=== PATIENT | male | born 1955 | race Caucasian/White ===

== ENCOUNTER 2018-02-20 06:35 | Day surgery (SDC) | payer BC ==
[2018-02-20] VITALS (20 sets, daily range): BP systolic 113–198; BP diastolic 71–102
[~2018-02-20] VITALS: Ht 175.3 cm; Wt 108.9 kg
[~2018-02-20 06:35] MED LIST: ENAL10TA78 PO; LIDOcaine 1% (10mg/ml) 2ml vial ONE; METF500T PO; famotidine 20mg tablet PO ONE; ringers solution, lacted 1,000 ML IV SCH
[2018-02-20] MEDS ORDERED: ceFAZolin 1000mg inj ONE (06:47)
[2018-02-20] MEDS ORDERED: BUPIVAcaine/PF 2.5 mg/ml (0.25%) 30ml vial ONE (06:48)
[2018-02-20 07:26] LABS: PRE OP PROTIME 10.1 SECONDS (9.0-12.0)
[2018-02-20 07:28] LABS: BASOPHILS % (AUTO) 0.1 % (0-1); EOSINOPHILS # (AUTO) 0.6 X10'3 (0-0.9); EOSINOPHILS % (AUTO) 7.8 % (0-6); LYMPHOCYTES # (AUTO) 2.3 X10'3 (1.1-4.8); LYMPHOCYTES % (AUTO) 30.3 % (21-51); MEAN CORPUSCULAR HEMOGLOBIN 30.3 PG (27.0-31.0); MEAN CORPUSCULAR HGB CONC 34.5 % (33.0-36.5); MEAN CORPUSCULAR VOLUME 87.8 FL (78-98); MEAN PLATELET VOLUME 7.2 FL (7.4-10.4); MONOCYTES # (AUTO) 0.5 X10'3 (0-0.9); MONOCYTES % (AUTO) 6.5 % (2-12); NEUTROPHILS # (AUTO) 4.2 X10'3 (1.8-7.7); NEUTROPHILS % (AUTO) 55.3 % (42-75); PRE OP HEMATOCRIT 50.4 % (42.0-52.0); PRE OP HEMOGLOBIN 17.4 g/dL (14.0-17.9); PRE OP PLATELET COUNT 234 X10'3 (140-440); RED BLOOD COUNT 5.74 X10'6 (4.70-6.10); RED CELL DISTRIBUTION WIDTH 12.6 % (11.5-14.5)
[2018-02-20 07:30] LABS: ALBUMIN 4.3 G/DL (3.4-5.0); ALBUMIN/GLOBULIN RATIO 1.3 (1.1-1.5); ALKALINE PHOSPHATASE 96 IU/L (46-116); BLOOD UREA NITROGEN 18 MG/DL (7-18); BUN/CREATININE RATIO 14.3 (5.4-32.0); CALCIUM 9.3 MG/DL (8.5-10.1); CHLORIDE 103 MMOL/L (99-107); CREATININE 1.26 MG/DL (0.60-1.10); PRE OP ALT 18 U/L (30-65); PRE OP ANION GAP 13 (8-16); PRE OP AST 14 U/L (10-37); PRE OP BILIRUB, TOTAL 0.9 MG/DL (0.0-1.0); PRE OP GLUCOSE 142 MG/DL (70-104); PRE OP POTASSIUM 4.4 MMOL/L (3.4-5.1); PRE OP SODIUM 139 MMOL/L (135-145); TOTAL CARBON DIOXIDE 23.1 MMOL/L (24-32); TOTAL PROTEIN 7.6 G/DL (6.4-8.2); eGFR 58 ML/MIN
[2018-02-20 07:33] LABS: HEMOGLOBIN A1C 6.5 % (4.5-6.2)
[2018-02-20] MEDS ORDERED: ceFAZolin inj. 2,000 MG in dextrose 5%-water 100 ML IV ONE (08:20)
[2018-02-20] MEDS ORDERED: midazolam 2 mg/2 ml injection ONE (08:28)
[2018-02-20] MEDS ORDERED: fentaNYL/PF 50MCG/1 ML 2ML syringe ONE ×2 (08:28→08:46)
[2018-02-20] MEDS ORDERED: desflurane 240ml liquid inh. IH ONE (08:28)
[2018-02-20] MEDS ORDERED: succinylcholine 20mg/ml inj IV ONE (08:45)
[2018-02-20] MEDS ORDERED: LIDOcaine 2% (20mg/ml) 5ml vial ONE (08:45)
[2018-02-20] MEDS ORDERED: propofol inj 20 ML IV ONE (08:45)
[2018-02-20] MEDS ORDERED: rocuronium 10mg/ml inj IV ONE (08:45)
[2018-02-20] MEDS ORDERED: labetalol 5mg/ml 20ml inj. IV ONE (09:18)
[2018-02-20] MEDS ORDERED: ringers solution, lacted 1,000 ML IV SCH (09:27)
[2018-02-20] MEDS ORDERED: meperidine/PF 50mg/ml syringe IV PRN ×2 (09:30)
[2018-02-20] MEDS ORDERED: ondansetron/PF 4mg/2ml inj IV PRN (09:30)
[2018-02-20] MEDS ORDERED: proCHLORperazine 10 MG/2 ml inj IV PRN (09:30)
[2018-02-20] MEDS ORDERED: morphine 4 MG/ML inj SYRINge IV PRN ×2 (09:30)
[2018-02-20] MEDS ORDERED: glycopyrrolate 0.2mg/ml inj ONE (09:36)
[2018-02-20] MEDS ORDERED: ondansetron/PF 4mg/2ml inj ONE (09:36)
[2018-02-20] MEDS ORDERED: neostigmine methylsulfate 1 MG/ML 10ml vial ONE (09:36)
[2018-02-20] MEDS ORDERED: meperidine/PF 50mg/ml syringe ONE (09:59)
[2018-02-20] MEDS ORDERED: labetalol 5mg/ml 20ml inj. IV PRN (10:35)
[2018-02-20] MEDS ORDERED: hydrALAZINE 20mg/ml inj. IV PRN (10:35)
[2018-02-20] MEDS ORDERED: insulin regular, human 10 units/0.1 ml syringe IV ONE (10:45)
[2018-02-20] MEDS: meperidine/PF 50mg/ml syringe IV PRN ×2 (10:45→11:42)
[2018-02-20] MEDS ORDERED: HYDROcodone/acetaminophen 10/325mg tab PO ONE (14:25)
== END 2018-02-20 17:19 | disposition home or self-care (01) ==
LOC: PAS 06:35 → EDSEX 09:15 → PAS 17:19
PROVIDERS: ATTEND Surgery
DX: K40.21 Bilateral inguinal hernia, without obstruction or gangrene, recurrent (principal); E11.9 Type 2 diabetes mellitus without complications; G47.33 Obstructive sleep apnea (adult) (pediatric); I10 Essential (primary) hypertension; E66.9 Obesity, unspecified; Z68.35 Body mass index [BMI] 35.0-35.9, adult; Z72.89 Other problems related to lifestyle; Z79.01 Long term (current) use of anticoagulants; Z90.49 Acquired absence of other specified parts of digestive tract; Z79.84 Long term (current) use of oral hypoglycemic drugs; Z79.899 Other long term (current) drug therapy; Z98.890 Other specified postprocedural states
CPT/HCPCS: 36415; 49651; 80053; 82948; 83036; 85025; 85610; 85730; 93005; A4315; A6258; C1713; C1781; J0330; J0360; J0690; J1815; J2001; J2175; J2250; J2270; J2405; J2704; J2710; J3010; J3490; J7120; J7060

== ENCOUNTER 2018-10-23 07:58 | Day surgery (SDC) | payer BC ==
[~2018-10-23] VITALS: Ht 175.3 cm; Wt 107.2 kg
[2018-10-23] VITALS (8 sets, daily range): BP systolic 149–218; BP diastolic 63–116
[~2018-10-23 07:58] MED LIST changes: -LIDOcaine 1% (10mg/ml) 2ml vial ONE; +cefazolin/dext.iso 2gm/50ml 50 ML IV ONE
[2018-10-23 09:22] LABS: BASOPHILS % (AUTO) 0.6 % (0-1); EOSINOPHILS # (AUTO) 0.5 X10'3 (0-0.9); EOSINOPHILS % (AUTO) 7.9 % (0-6); LYMPHOCYTES # (AUTO) 2.3 X10'3 (1.1-4.8); LYMPHOCYTES % (AUTO) 39.4 % (21-51); MEAN CORPUSCULAR HEMOGLOBIN 29.5 PG (27.0-31.0); MEAN CORPUSCULAR HGB CONC 33.7 % (33.0-36.5); MEAN CORPUSCULAR VOLUME 87.4 FL (78-98); MEAN PLATELET VOLUME 6.8 FL (7.4-10.4); MONOCYTES # (AUTO) 0.4 X10'3 (0-0.9); MONOCYTES % (AUTO) 7.2 % (2-12); NEUTROPHILS # (AUTO) 2.6 X10'3 (1.8-7.7); NEUTROPHILS % (AUTO) 44.9 % (42-75); PRE OP HEMATOCRIT 47.4 % (42.0-52.0); PRE OP PLATELET COUNT 244 X10'3 (140-440); RED BLOOD COUNT 5.42 X10'6 (4.70-6.10); RED CELL DISTRIBUTION WIDTH 12.7 % (11.5-14.5)
[2018-10-23 09:34] LABS: CLARITY,URINE CLEAR (Clear); COLOR,URINE YELLOW (Yellow); GLUCOSE, URINE NEGATIVE (Neg); KETONES,URINE NEGATIVE (Neg); LEUKOCYTE ESTERASE ,URINE NEGATIVE (Neg); NITRITES, URINE NEGATIVE (Neg); OCCULT BLOOD,URINE NEGATIVE (Neg); PROTEIN,URINE NEGATIVE (Neg); UROBILINOGEN,URINE 0.2 E.U/dL (0.2-1.0)
[2018-10-23 09:35] LABS: UA COLLECTION TYPE NON-SPECIFIED
[2018-10-23 09:42] LABS: ALBUMIN 3.8 G/DL (3.4-5.0); ALBUMIN/GLOBULIN RATIO 1.3 (1.1-1.5); ALKALINE PHOSPHATASE 90 IU/L (46-116); BLOOD UREA NITROGEN 17 MG/DL (7-18); CALCIUM 9.3 MG/DL (8.5-10.1); CHLORIDE 103 MMOL/L (99-107); PRE OP ALT 18 U/L (30-65); PRE OP ANION GAP 12 (8-16); PRE OP AST 15 U/L (10-37); PRE OP BILIRUB, TOTAL 0.9 MG/DL (0.0-1.0); PRE OP GLUCOSE 127 MG/DL (70-104); PRE OP POTASSIUM 4.1 MMOL/L (3.4-5.1); PRE OP SODIUM 138 MMOL/L (135-145); TOTAL CARBON DIOXIDE 22.8 MMOL/L (24-32); TOTAL PROTEIN 6.7 G/DL (6.4-8.2); eGFR 76 ML/MIN
[2018-10-23] MEDS ORDERED: BUPIVAcaine/PF 2.5mg/ml (0.25%) 10ml vial ONE (15:29)
[2018-10-23] MEDS ORDERED: sevoflurane 250ml liquid IH ONE (16:05)
[2018-10-23] MEDS ORDERED: fentaNYL /PF 50mcg/ml 5ml ampule ONE (16:06)
[2018-10-23] MEDS ORDERED: midazolam 2 mg/2 ml injection ONE (16:06)
[2018-10-23] MEDS ORDERED: rocuronium 10mg/ml inj IV ONE (16:55)
[2018-10-23] MEDS ORDERED: neostigmine methylsulfate 1 MG/ML 10ml vial ONE (16:55)
[2018-10-23] MEDS ORDERED: LIDOcaine 2% (20mg/ml) 5ml vial ONE (16:55)
[2018-10-23] MEDS ORDERED: ondansetron/PF 4mg/2ml inj ONE (16:55)
[2018-10-23] MEDS ORDERED: glycopyrrolate 0.2mg/ml inj ONE (16:55)
[2018-10-23] MEDS ORDERED: propofol inj 20 ML IV ONE (16:55)
[2018-10-23] MEDS ORDERED: ringers solution, lacted 1,000 ML IV SCH (17:07)
[2018-10-23] MEDS ORDERED: morphine 4 MG/ML inj SYRINge IV PRN ×2 (17:10)
[2018-10-23] MEDS ORDERED: proCHLORperazine 10 MG/2 ml inj IV PRN (17:10)
[2018-10-23] MEDS ORDERED: meperidine/PF 25mg/ml syringe IV PRN ×3 (17:10)
[2018-10-23] MEDS ORDERED: ondansetron/PF 4mg/2ml inj IV PRN (17:10)
[2018-10-23] MEDS ORDERED: labetalol 20mg/4ml (5mg/ml) syringe IV PRN (17:35)
[2018-10-23] MEDS ORDERED: labetalol 20mg/4ml (5mg/ml) syringe IV ONE (17:36)
[2018-10-23] MEDS ORDERED: hydrALAZINE 20mg/ml inj. IV ONE ×2 (17:55→17:57)
== END 2018-10-23 18:25 | disposition home or self-care (01) ==
LOC: PAS 07:58
PROVIDERS: ATTEND Surgery
DX: L76.32 Postprocedural hematoma of skin and subcutaneous tissue following other procedure (principal); Y83.8 Other surgical procedures as the cause of abnormal reaction of the patient, or of later complication, without mention of misadventure at the time of the procedure; Y92.89 Other specified places as the place of occurrence of the external cause; K42.0 Umbilical hernia with obstruction, without gangrene; K66.0 Peritoneal adhesions (postprocedural) (postinfection); G47.33 Obstructive sleep apnea (adult) (pediatric); I10 Essential (primary) hypertension; E11.9 Type 2 diabetes mellitus without complications; E66.9 Obesity, unspecified; F10.10 Alcohol abuse, uncomplicated; Z87.2 Personal history of diseases of the skin and subcutaneous tissue; Z68.34 Body mass index [BMI] 34.0-34.9, adult; Z90.49 Acquired absence of other specified parts of digestive tract; Z86.69 Personal history of other diseases of the nervous system and sense organs; Z87.39 Personal history of other diseases of the musculoskeletal system and connective tissue; Z79.84 Long term (current) use of oral hypoglycemic drugs; Z79.899 Other long term (current) drug therapy; Z98.890 Other specified postprocedural states
CPT/HCPCS: 10140; 36415; 49329; 49587; 80053; 81003; 82948; 85025; 93005; J0360; J0690; J2001; J2175; J2250; J2405; J2704; J2710; J3010; J3490; J7120; A4315; C1727